=== PATIENT | female | born 1965 | race Caucasian/White ===

== ENCOUNTER 2024-02-20 11:52 | Outpatient (RCR) | payer MEDICARE, MEDICAID, SELFPAY ==
--- NOTE | 2024-03-01 22:16 | CTCFLWUP_ITS ---
Patient: ABRIL NEUMANN : 1965 Page 2 of 4 FOLLOW UP NOTE DATE OF SERVICE: 02/20/2024 NAME: ABRIL NEUMANN ACCOUNT: [id number] : 1965 AGE: 58 INTERVAL HISTORY: Patient here to follow-up pancytopenia. Patient feels fatigued and tired. Patient is being followed for pancytopenia. Patient has been taking Keppra. ONCOLOGY HISTORY: DIAGNOSIS: Age-related osteoporosis without current pathological fracture [ICD10] M81.0 TREATMENT HISTORY: Care?Plan Start?Date Cycle Day Intent Zoledronic?Acid?4?mg 02/20/2024 1 90 Palliative HISTORY OF PRESENT ILLNESS: Abril Thakur is a 58-year-old Tongan-speaking female. Patient is accompanied by kamryn jordan, patient lives in a skilled nursing due to epilepsy. Last seizure was yesterday. Patient taking Keppra. Patient reports history of skin cancer on left shoulder, about 2017 2018, reports it was re moved, does not have contact information of engineering librarian she saw. Patient was referred due to neutr openia and thrombocytopenia. 12/07/2021: WBC 3.7, ANC 2.2, hemoglobin 11.3, MCV 112, platelets 115,000 02/12/2023: WBC 1.9, ANC 0.7, hemoglobin 13.3, MCV 107, platelets 119,000, vitamin B12 is 194 09/25/2023: WBC 2.8, ANC 1.2, hemoglobin 13.6, MCV 99, platelets 144,000, creatinine 0.7, AST 14, ALT 11, T. bili 0.4 10/16/2023: WBC 2.2, ANC 0.7, hemoglobin 13.3, MCV 104, platelets 109,000 OTHER MEDICAL HISTORY/CONDITIONS: EPILEPSY ON MEDICATIONS , LAST SEIZURE 11/13/23 ANEMIA HX SKIN CANCER SHOULDER REPLACEMENT TRAIL 2021 SKIN CANCER SX FAMILY HISTORY: DENIES DENIES DENIES NO CHILDREN SKIN CANCER ON (R) NOSE, LEFT BACK UNABLE TO RECALL WHEN SOCIAL HISTORY: Social History Occupational History - UNEMPLOYED Education Level - Completed High School Exercise Regularly - Yes 2-3 times a week Marital Status - Single Cultural/Scientology Considerations - MUSLIM Tobacco Use - Yes Smoking Cessation Counseling - Smoking cessation education Tobacco Use Years - 40 Tobacco Use Note - 1 PACK CIGARETTES EVERY 3 DAYS ETOH Use Note - DENIES Drug Note - USED METH IN PAST Social History Note 2 - LIVES AT [place], [place] 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 calcium - 600 mg 1 Capsule Daily 2. levETIRAcetam - 750 mg 1 tab Twice a Day 3. lorazepam - 0.5 mg 2 tab In the evening 4. OXcarbazepine - 300 mg 2 tab Twice a Day 5. PARoxetine HCl - 20 mg 1 tab Daily 6. Vitamin D3 - 2,000 unit 1 Capsule Daily Medications Last Reconciled by Mary Guillory MA on 02/20/2024 ALLERGIES: Penicillin V; aspirin; Carbamazepine; Phenobarbital; divalproex REVIEW OF SYSTEMS: A complete 14-point review of systems was performed and is negative except as noted in interval histo ry. PHYSICAL EXAMINATION: VITAL SIGNS: PAIN: 0 - No pain ECOG Performance Status: 0 - Asymptomatic and fully active GENERAL APPEARANCE: Appears well, in no apparent distress, appropriately interactive. HEENT: Normocephalic, no temporal wasting, normal conjunctiva, no scleral icterus, normal hearing, li ps without lesions, neck normal range of motion. CARDIOVASCULAR: Not assessed. PULMONARY: Normal respiratory effort, no respiratory distress or use of accessory muscles, speaking i n full sentences, no tachypnea. EXTREMITIES: No pedal edema or cyanosis. SKIN: Normal skin appearance. NEUROLOGIC: Alert and oriented x4. PSHYCHIATRIC: Appropriate affect, mood normal, behavior normal, intact thought and speech. LABORATORY DATA: I have personally reviewed and interpreted each of the patient?s relevant lab tests, abnormal finding s are below: Date 01/10/24 ??WHITE?BLOOD?COUNT?(Thou/mm3) 2.6?L ??RED?BLOOD?COUNT?(Miln/mm3) 3.81?L ??HEMOGLOBIN?(gm/dl) 14.6 ??HEMATOCRIT?(%) 38.8 ??PLATELET?COUNT?(Thou/mm3) 127?L ??NEUTROPHILS?%,?AUTO?(%) 40 ??LYMPH?%,?AUTO?(%) 47 ??NEUTROPHILS,?AUTO?(Thou/mm3) 1.0?L ASSESSMENT/PLAN: ? Pancytopenia ? B 12 deficiency 02/12/2023, level of 194, no other B12 labs, not taking any supplementation. ? Smoker. ? History of epilepsy, lives in a skilled nursing due to epilepsy, last seizure was yesterday, follows up regularly with neurologist, Dr Wei. Patient taking levetiracetam. ORDERS: IR guided bone marrow biopsy to evaluate for MDS Obtain bone density results reports CBC CMP folate and B12 Keppra is known to cause bone marrow suppression in some patients I cannot hold the drug as patient has been on it for long-term Will get bone marrow biopsy to evaluate there is no underlying cancer If everything negative then we can ask neurologist to taper off Keppra and start some alternative kay page RETURN TO CLINIC: 6 to 8 weeks BILLING AND COMPLIANCE: I reviewed external records from providers outside my specialty as summarized above. I spent a total of 50 minutes on this patient?s care on the day of their visit excluding time spent related to any bi lled procedures. This time includes time spent with the patient as well as time spent documenting in the medical record, reviewing patients records and tests, obtaining history, placing orders, communi cating with other healthcare professionals, counseling the patient, family or caregiver, and/or care coordination for the diagnoses above. Electronically Signed by: Max Giordano MD T: 10:14 PM CC: PCP: No Primary/family, Physician Referring: No Primary/family, Physician This document was completed utilizing speech recognition software. Grammatical errors, random word in sertions, pronoun errors, and incomplete sentences are an occasional consequence of this system due t o software limitations, ambient noise, and hardware issues. Any formal questions or concerns about th e content, text or information contained within the body of this dictation should be directly address ed to the provider for clarification.
== END 2024-03-03 23:59 | disposition home or self-care (01) ==
LOC: SCTC 11:52
PROVIDERS: Visit Provider Internal Medicine Hematology & Oncology
DX: D61.818 Other pancytopenia (principal); M81.0 Age-related osteoporosis without current pathological fracture; G40.909 Epilepsy, unspecified, not intractable, without status epilepticus; E53.8 Deficiency of other specified B group vitamins; F17.210 Nicotine dependence, cigarettes, uncomplicated
CPT/HCPCS: 99212; G0463

== ENCOUNTER 2024-03-25 08:48 | Outpatient (RCR) | payer MEDICARE, MEDICAID, SELFPAY ==
[2024-03-25 09:57] LABS: Basophils % (Auto) 0 % (0-2.5); Eosinophils % (Auto) 0 % (0-10); Hematocrit 38.6 % (36.0-46.0); Hemoglobin 13.8 g/dL (12.0-16.0); Immature Granulocytes % (Auto) 0 % (0-0); Immature Granulocytes Auto 0.01 Thou/mm3 (0.00-0.00); Lymphocytes # (Auto) 1.1 Thou/mm3 (1.0-4.8); Lymphocytes % (Auto) 38 % (10-50); Mean Corpuscular HGB Conc 35.8 g/dl (31.0-37.0); Mean Corpuscular Hemoglobin 36.4 pg (25.0-35.0); Mean Corpuscular Volume 102 fL (80-100); Monocytes # (Auto) 0.4 Thou/mm3 (0.0-0.8); Monocytes % (Auto) 14 % (0-12); Neutrophils # (Auto) 1.3 Thou/mm3 (1.8-7.7); Neutrophils % (Auto) 47 % (37-80); Nucleated Red Blood Cell % 0 /100 WBC (0); Platelet Count 122 Thou/mm3 (140-440); Red Blood Count 3.79 Miln/mm3 (4.00-5.20)
[2024-03-25 10:00] LABS: Immature Reticulocyte Fraction 5.1 % (3.0-15.9); Reticulocyte % (Auto) 1.6 % (0.5-1.5); Reticulocyte Absolute Auto 57.5 Biln/L (25.0-75.0); Reticulocyte Hgb Content 34.9 pg (28.0-35.0)
[2024-03-25 10:15] LABS: White Blood Count 2.9 Thou/mm3 (3.6-11.0)
[2024-03-25 10:22] LABS: Alanine Aminotransferase 11 U/L (10-49); Albumin, Serum 4.4 gm/dL (3.5-5.0); Albumin/Globulin Ratio 1.8 (1.2-2.2); Alkaline Phosphatase 68 U/L (46-116); Anion Gap 5 (7-16); Aspartate Amino Transferase 17 U/L (0-34); BUN/Creatinine Ratio 24 Ratio (12-20); Bilirubin,Total 0.4 mg/dL (0.3-1.2); Blood Urea Nitrogen 17 mg/dL (9-23); Calcium 10.5 mg/dL (8.3-10.6); Calcium (Corrected) 10.5 mg/dL (8.5-10.1); Carbon Dioxide 31.5 mMol/L (20.0-31.0); Chloride 104 mMol/L (98-107); Creatinine (Component) 0.7 mg/dL (0.6-1.3); Ferritin 16 ng/mL (7.3-270.7); Folate 14.82 ng/mL (>5.38); Globulin 2.4 gm/dL (2.3-3.5); Glucose 83 mg/dL (74-106); Iron 121 mcg/dL (50-170); LDH (Lactate Dehydrogenase) 175 U/L (120-246); Osmolality,Calculated 279 (275-295); Percent Iron Saturation 42 % (20-55); Potassium 4.2 mMol/L (3.4-5.1); Sodium 140 mMol/L (136-145); Total Iron Binding Capacity 286 mcg/dL (250-425); Total Protein 6.8 gm/dL (5.7-8.2); Unsaturated Iron Binding 165 (225-295); Vitamin B12 243 pg/mL (211-911); eGFR > 60 See Note
[2024-03-31 07:02] LABS: Haptoglobin* 66 mg/dL (43-212)
== END 2024-04-03 23:59 | disposition home or self-care (01) ==
LOC: SCTC 08:48
PROVIDERS: PCP Family Medicine; Referring Provider Internal Medicine Hematology & Oncology; Visit Provider Internal Medicine Hematology & Oncology
DX: D61.818 Other pancytopenia (principal); E53.8 Deficiency of other specified B group vitamins; F17.210 Nicotine dependence, cigarettes, uncomplicated
CPT/HCPCS: 80053; 82607; 82728; 82746; 83010; 83540; 83550; 83615; 85025; 85046; 96365; J3489

== ENCOUNTER 2024-03-26 06:47 | Outpatient (CLI) | payer MEDICARE, MEDICAID, SELFPAY ==
[2024-03-26] VITALS (11 sets, daily range): BP systolic 141–177; BP diastolic 66–99; PULSE 56–66; RESP 12–22; TEMP 36.2–36.3; O2SAT 92–100; BMI 25.4
[2024-03-26 07:39] LABS: Basophils % (Auto) 0 % (0-2.5); Eosinophils % (Auto) 0 % (0-10); Hemoglobin 13.3 g/dL (12.0-16.0); Immature Granulocytes % (Auto) 0 % (0-0); Immature Granulocytes Auto 0.01 Thou/mm3 (0.00-0.00); Lymphocytes % (Auto) 32 % (10-50); Mean Corpuscular HGB Conc 36.9 g/dl (31.0-37.0); Mean Corpuscular Hemoglobin 38.2 pg (25.0-35.0); Mean Corpuscular Volume 103 fL (80-100); Monocytes # (Auto) 0.4 Thou/mm3 (0.0-0.8); Monocytes % (Auto) 12 % (0-12); Neutrophils # (Auto) 1.8 Thou/mm3 (1.8-7.7); Neutrophils % (Auto) 55 % (37-80); Nucleated Red Blood Cell % 0 /100 WBC (0); Platelet Count 114 Thou/mm3 (140-440); RDW Standard Deviation 48.7 fL (36.4-46.3); Red Blood Count 3.48 Miln/mm3 (4.00-5.20); White Blood Count 3.3 Thou/mm3 (3.6-11.0)
[2024-03-26 07:42] LABS: Blood Urea Nitrogen 15 mg/dL (9-23); Creatinine (Component) 0.7 mg/dL (0.6-1.3); eGFR > 60 See Note
[2024-03-26 07:46] LABS: Partial Thromboplastin Time 24.5 Seconds (22.0-36.0); Prothrombin Time 11.3 Seconds (9.0-12.2)
--- NOTE | 2024-03-26 08:30 | XR_ITS ---
Examination: CT-guided percutaneous bone marrow aspiration right posterior superior iliac crest CT-guided percutaneous bone biopsy deep right posterior superior iliac crest CT pelvis without intravenous contrast Date and time of procedure: March 26, 2024 0916 hours INDICATIONS: Neutropenia, unspecified Informed consent provided. A timeout was completed verifying correct patient, procedure, site and positioning. Technique: Axial 3 mm sections were obtained for localization of the right posterior superior iliac crest Appropriate area is marked. The patient's site was prepped and draped in sterile fashion Maximal sterile barrier technique utilized, including hand hygiene Local anesthesia was obtained with 1% lidocaine. Low dose protocols were performed. One or more of the following dose reduction techniques were used; automated exposure control, adjustment of the mA and/or KV according to patient size, use of iterative reconstruction technique. Utilizing CT fluoroscopic guidance 14-gauge bone biopsy needle placed in the right posterior superior iliac crest 5 cc marrow aspirate and 5 cm bone core obtained Patient appears in stable condition during this procedure. At completion of the procedure, the patient is in satisfactory condition. Estimated blood loss 3 cc Complete pathology report to follow. Impression: Successful CT-guided percutaneous bone marrow aspiration right posterior superior iliac crest Successful CT-guided percutaneous bone biopsy deep right posterior superior iliac crest
[2024-03-26] MEDS: SODIUM CHLORIDE 0.9% 250 ML 250 ML 20 ML IV (09:30)
[2024-03-26] MEDS: fentaNYL CIT INJ 50 mCg/ML AMP 2ML IVP (09:36)
[2024-03-26 10:07] LABS: Flow Cytometry* See Sep Rpt
== END 2024-03-26 11:10 | disposition home or self-care (01) ==
PROVIDERS: Radiology Diagnostic Radiology; PCP Family Medicine; Referring Provider Internal Medicine Hematology & Oncology; Visit Provider Internal Medicine Hematology & Oncology
DX: D75.89 Other specified diseases of blood and blood-forming organs (principal); D69.6 Thrombocytopenia, unspecified; D70.8 Other neutropenia; Z01.812 Encounter for preprocedural laboratory examination
CPT/HCPCS: 38221; 36415; 77012; 82565; 84520; 85025; 85610; 85730; J3010; J7050

== ENCOUNTER → 2024-05-01 | Outpatient (CLI) | payer MEDICARE, MEDICAID, SELFPAY ==
[2024-05-01 08:53] LABS: Misc Send Out* See Sep Rpt
[2024-05-01 09:29] LABS: Basophils % (Auto) 0 % (0-2.5); Eosinophils % (Auto) 0 % (0-10); Hemoglobin 14.1 g/dL (12.0-16.0); Immature Granulocytes % (Auto) 0 % (0-0); Immature Reticulocyte Fraction 7.6 % (3.0-15.9); Lymphocytes # (Auto) 1.2 Thou/mm3 (1.0-4.8); Lymphocytes % (Auto) 35 % (10-50); Mean Corpuscular HGB Conc 35.3 g/dl (31.0-37.0); Mean Corpuscular Hemoglobin 35.4 pg (25.0-35.0); Mean Corpuscular Volume 101 fL (80-100); Monocytes # (Auto) 0.5 Thou/mm3 (0.0-0.8); Monocytes % (Auto) 14 % (0-12); Neutrophils # (Auto) 1.7 Thou/mm3 (1.8-7.7); Neutrophils % (Auto) 51 % (37-80); Nucleated Red Blood Cell % 0 /100 WBC (0); Platelet Count 131 Thou/mm3 (140-440); RDW Standard Deviation 47.5 fL (36.4-46.3); Red Blood Count 3.98 Miln/mm3 (4.00-5.20); Reticulocyte % (Auto) 1.9 % (0.5-1.5); Reticulocyte Absolute Auto 74.4 Biln/L (25.0-75.0); Reticulocyte Hgb Content 37.3 pg (28.0-35.0); White Blood Count 3.4 Thou/mm3 (3.6-11.0)
[2024-05-01 09:43] LABS: Alanine Aminotransferase 12 U/L (10-49); Albumin, Serum 4.2 gm/dL (3.5-5.0); Albumin/Globulin Ratio 2.1 (1.2-2.2); Alkaline Phosphatase 65 U/L (46-116); Anion Gap 6 (7-16); Aspartate Amino Transferase 13 U/L (0-34); BUN/Creatinine Ratio 40 Ratio (12-20); Bilirubin,Total 0.3 mg/dL (0.3-1.2); Blood Urea Nitrogen 24 mg/dL (9-23); Calcium 10.3 mg/dL (8.3-10.6); Calcium (Corrected) 10.3 mg/dL (8.5-10.1); Carbon Dioxide 30.3 mMol/L (20.0-31.0); Chloride 109 mMol/L (98-107); Creatinine (Component) 0.6 mg/dL (0.6-1.3); Folate 11.78 ng/mL (>5.38); Glucose 80 mg/dL (74-106); LDH (Lactate Dehydrogenase) 158 U/L (120-246); Osmolality,Calculated 291 (275-295); Potassium 4.4 mMol/L (3.4-5.1); Sodium 145 mMol/L (136-145); Total Protein 6.2 gm/dL (5.7-8.2); Vitamin B12 211 pg/mL (211-911); eGFR > 60 See Note
[2024-05-11 07:03] LABS: Haptoglobin* 54 mg/dL (43-212)
== END | disposition home or self-care (01) ==
LOC: COPL 08:33
PROVIDERS: PCP Family Medicine; Referring Provider Family Medicine; Visit Provider Internal Medicine Hematology & Oncology
DX: D70.9 Neutropenia, unspecified (principal); D69.6 Thrombocytopenia, unspecified; M81.0 Age-related osteoporosis without current pathological fracture; G40.909 Epilepsy, unspecified, not intractable, without status epilepticus
CPT/HCPCS: 36415; 80053; 82607; 82746; 83010; 83615; 85025; 85046

== ENCOUNTER 2024-05-12 15:28 | Outpatient (RCR) | payer MEDICARE, MEDICAID, SELFPAY ==
--- NOTE | 2024-05-06 14:41 | CTCFLWUP_ITS ---
Patient: ABRIL NEUMANN : 1965 Page 2 of 2 FOLLOW UP NOTE DATE OF SERVICE: 05/06/2024 NAME: ABRIL NEUMANN ACCOUNT: [id number] : 1965 AGE: 58 INTERVAL HISTORY: Patient here to follow-up pancytopenia. Patient feels fatigued and tired. Patient is being followed for pancytopenia. Patient has been taking Keppra. Patient had a bone marrow biopsy and here to follow-up on the results. ONCOLOGY HISTORY:?[facility] Hx? DIAGNOSIS: Age-related osteoporosis without current pathological fracture [ICD10] M81.0 TREATMENT HISTORY: Care?Plan Start?Date Cycle Day Intent Zoledronic?Acid?4?mg 03/25/2024 1 90 Palliative HISTORY OF PRESENT ILLNESS: Abril Thakur is a 58-year-old Kyrgyz-speaking female. Patient is accompanied by caregiver, patient lives in a mcc due to epilepsy. Last seizure was yesterday. Patient taking Keppra. 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 Patient was referred due to neutropenia and thrombocytopenia. 12/07/2021: WBC 3.7, ANC 2.2, hemoglobin 11.3, MCV 112, platelets 115,000 02/12/2023: WBC 1.9, ANC 0.7, hemoglobin 13.3, MCV 107, platelets 119,000, vitamin B12 is 194 09/25/2023: WBC 2.8, ANC 1.2, hemoglobin 13.6, MCV 99, platelets 144,000, creatinine 0.7, AST 14, ALT 11, T. bili 0.4 10/16/2023: WBC 2.2, ANC 0.7, hemoglobin 13.3, MCV 104, platelets 109,000 OTHER MEDICAL HISTORY/CONDITIONS: EPILEPSY ON MEDICATIONS , LAST SEIZURE 11/13/23 ANEMIA HX SKIN CANCER SHOULDER REPLACEMENT [place] 2021 SKIN CANCER SX FAMILY HISTORY: DENIES DENIES DENIES NO CHILDREN SKIN CANCER ON (R) NOSE, LEFT BACK UNABLE TO RECALL WHEN SOCIAL HISTORY: Social History Occupational History - UNEMPLOYED Education Level - Completed High School Exercise Regularly - Yes 2-3 times a week Marital Status - Single Cultural/Baptist Considerations - FAITH Tobacco Use - Yes Smoking Cessation Counseling - Smoking cessation education Tobacco Use Years - 40 Tobacco Use Note - 1 PACK CIGARETTES EVERY 3 DAYS ETOH Use Note - DENIES Drug Note - USED METH IN PAST Social History Note 2 - 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 calcium - 600 mg 1 Capsule Daily 2. levETIRAcetam - 750 mg 1 tab Twice a Day 3. lorazepam - 0.5 mg 2 tab In the evening 4. OXcarbazepine - 300 mg 2 tab Twice a Day 5. PARoxetine HCl - 20 mg 1 tab Daily 6. Vitamin D3 - 2,000 unit 1 Capsule Daily?Palabra Meds? Medications Last Reconciled by Pati Paniagua MD on 05/06/2024 ALLERGIES: Penicillin V; aspirin; Carbamazepine; Phenobarbital; divalproex REVIEW OF SYSTEMS: A complete 14-point review of systems was performed and is negative except as noted in interval history. PHYSICAL EXAMINATION:?[facility] PE? VITAL SIGNS: PAIN: 0 - No pain GENERAL APPEARANCE: Appears well, in no apparent distress, appropriately interactive. HEENT: Normocephalic, no temporal wasting, normal conjunctiva, no scleral icterus, normal hearing, lips without lesions, neck normal range of motion. CARDIOVASCULAR: Not assessed. PULMONARY: Normal respiratory effort, no respiratory distress or use of accessory muscles, speaking in full sentences, no tachypnea. EXTREMITIES: No pedal edema or cyanosis. SKIN: Normal skin appearance. NEUROLOGIC: Alert and oriented x4. PSHYCHIATRIC: Patient has flat mood LABORATORY DATA: I have personally reviewed and interpreted each of the patient?s relevant lab tests, abnormal findings are below: Date 05/01/24 ??LDH,?TOTAL?(Unit/L) 158 ASSESSMENT/PLAN:?[facility] Assessment/Plan? ? Pancytopenia ? B 12 deficiency 02/12/2023, level of 194, repeat B12 in 04/23/2024 is 217 ? smoker. ? History of epilepsy, lives in a mcc due to epilepsy, last seizure was yesterday, follows up regularly with neurologist, Dr Wei. Patient taking levetiracetam. Patient's pancytopenia can be from severe B12 deficiency and seizure medication Will start B12 thousand for 4 doses subcutaneously followed by monthly Multivitamin ordered containing calcium and vitamin D Check CBC every month to see response If after 3 months patient's pancytopenia do not improve, neurologist advised to change treatment RETURN TO CLINIC: I will see her back in the clinic in 2 months. BILLING AND COMPLIANCE: I reviewed external records from providers outside my specialty as summarized above. I spent a total of 50 minutes on this patient?s care on the day of their visit excluding time spent related to any billed procedures. This time includes time spent with the patient as well as time spent documenting in the medical record, reviewing patients records and tests, obtaining history, placing orders, communicating with other healthcare professionals, counseling the patient, family or caregiver, and/or care coordination for the diagnoses above. Electronically Signed by: Max Giordano MD T: 2:37 PM CC: PCP: Pavel Weeks Referring: Pavel Weeks This document was completed utilizing speech recognition software. Grammatical errors, random word insertions, pronoun errors, and incomplete sentences are an occasional consequence of this system due to software limitations, ambient noise, and hardware issues. Any formal questions or concerns about the content, text or information contained within the body of this dictation should be directly addressed to the provider for clarification.
== END 2024-06-01 23:59 | disposition home or self-care (01) ==
LOC: SCTC 15:28
PROVIDERS: PCP Family Medicine; Referring Provider Family Medicine; Visit Provider Internal Medicine Hematology & Oncology
DX: D61.818 Other pancytopenia (principal); E53.8 Deficiency of other specified B group vitamins; F17.210 Nicotine dependence, cigarettes, uncomplicated; G40.909 Epilepsy, unspecified, not intractable, without status epilepticus; Z79.899 Other long term (current) drug therapy
CPT/HCPCS: 96372; 99212; J3420; G0463

== ENCOUNTER → 2024-07-03 | Outpatient (CLI) | payer MEDICARE, MEDICAID, SELFPAY ==
[2024-07-02 16:40] LABS: Basophils % (Auto) 0 % (0-2.5); Eosinophils % (Auto) 0 % (0-10); Hematocrit 34.1 % (36.0-46.0); Hemoglobin 12.8 g/dL (12.0-16.0); Immature Granulocytes % (Auto) 0 % (0-0); Lymphocytes # (Auto) 1.1 Thou/mm3 (1.0-4.8); Lymphocytes % (Auto) 43 % (10-50); Mean Corpuscular HGB Conc 37.5 g/dl (31.0-37.0); Mean Corpuscular Hemoglobin 37.9 pg (25.0-35.0); Mean Corpuscular Volume 101 fL (80-100); Monocytes # (Auto) 0.4 Thou/mm3 (0.0-0.8); Monocytes % (Auto) 17 % (0-12); Neutrophils # (Auto) 1.1 Thou/mm3 (1.8-7.7); Neutrophils % (Auto) 40 % (37-80); Nucleated Red Blood Cell % 0 /100 WBC (0); Platelet Count 122 Thou/mm3 (140-440); RDW Standard Deviation 46.5 fL (36.4-46.3); Red Blood Count 3.38 Miln/mm3 (4.00-5.20)
[2024-07-02 17:03] LABS: Alanine Aminotransferase 9 U/L (10-49); Albumin, Serum 3.9 gm/dL (3.5-5.0); Albumin/Globulin Ratio 1.7 (1.2-2.2); Alkaline Phosphatase 68 U/L (46-116); Anion Gap 8 (7-16); Aspartate Amino Transferase 15 U/L (0-34); BUN/Creatinine Ratio 28 Ratio (12-20); Bilirubin,Total 0.3 mg/dL (0.3-1.2); Blood Urea Nitrogen 22 mg/dL (9-23); Calcium 9.7 mg/dL (8.3-10.6); Calcium (Corrected) 9.8 mg/dL (8.5-10.1); Carbon Dioxide 30.2 mMol/L (20.0-31.0); Chloride 105 mMol/L (98-107); Creatinine (Component) 0.8 mg/dL (0.6-1.3); Globulin 2.3 gm/dL (2.3-3.5); Glucose 101 mg/dL (74-106); Osmolality,Calculated 288 (275-295); Sodium 143 mMol/L (136-145); Total Protein 6.2 gm/dL (5.7-8.2); eGFR > 60 See Note
[2024-07-02 17:16] LABS: White Blood Count 2.7 Thou/mm3 (3.6-11.0)
--- NOTE | 2024-07-03 12:30 | XR_ITS ---
Examination: CT chest, without intravenous contrast. Sagittal and coronal 2-D reconstructions. Exam date and time: July 03, 2024 1301 hours Comparison December 10, 2023 INDICATIONS: Neutropenia thrombocytopenia, 6 mm soft pulmonary nodule left upper lobe on CT chest April 2023 with left renal calculi and 6 mm left common iliac lymph node CTDI:vol (mGy) 11.6 DLP: (mGycm) 349 Technique: Multiple 3.0 mm axial sections of the chest to been obtained. Bone and lung density settings are obtained. Sagittal and coronal 2-D reconstructions have been obtained. Low dose protocols were performed. One or more of the following dose reduction techniques were used; automated exposure control, adjustment of the mA and/or KV according to patient size, use of iterative reconstruction technique. Findings: No thoracic aortic aneurysm dilatation Pulmonary artery segments are not enlarged The breast architecture is heterogeneously dense and nodular Trace pericardial thickening No paratracheal tracheobronchial or bronchopulmonary adenopathy The remaining 6 mm soft pulmonary nodule left upper lobe No new pulmonary nodules No pneumonia or pulmonary edema No visualized liver or splenic lesion No gallstones No pancreatic mass 8mm left renal calculus Severe osteopenia with chronic osteoporotic compressions T12 T8, T7 T2, T1, C7 IMPRESSION: Stable 6 mm soft pulmonary nodule left upper lobe, no new pulmonary nodules
== END | disposition home or self-care (01) ==
LOC: SCTO 11:47
PROVIDERS: PCP Family Medicine; Referring Provider Nurse Practitioner Family; Visit Provider Radiology Diagnostic Radiology
DX: R91.1 Solitary pulmonary nodule (principal); D70.9 Neutropenia, unspecified; D69.6 Thrombocytopenia, unspecified
CPT/HCPCS: 36415; 71250; 80053; 85025

== ENCOUNTER 2024-07-09 14:33 | Outpatient (RCR) | payer MEDICARE, MEDICAID, SELFPAY ==
--- NOTE | 2024-07-12 22:08 | CTCFLWUP_ITS ---
Patient: ABRIL ELDER : 1965 Page 4 of 7 FOLLOW UP NOTE DATE OF SERVICE: 07/09/2024 NAME: ABRIL ELDER ACCOUNT: [id number] : 1965 AGE: 58 INTERVAL HISTORY: Subjective: Chief Complaint Follow-up for pancytopenia and B12 deficiency History of Present Illness Abril Elder, a patient with a history of epilepsy living in a care home, presents for follow-up of pancytopenia and B12 deficiency. She was initially seen in April 2024 with a B12 level of 194 and was started on B12 supplementation with a plan to follow up in 3 weeks. During today's telephone visit, Abril reports feeling a little better since starting the B12 injections. She has been receiving B12 injections every 4 weeks, with the most recent injection on July 06, 2024. Abril's adherence to the prescribed treatment regimen appears to be good, as she has been consistently receiving the injections as scheduled. No specific symptoms or complaints were reported by Abril during this follow-up visit. The impact of her condition on her daily functioning was not explicitly discussed. Medical History - Pancytopenia - B12 deficiency - Epilepsy Medications and Supplements - Vitamin B12 injections - Administered every 4 weeks - Last injection on July 06, 2024 - Patient reports feeling a little better since starting Social History - Living Situation: Lives in a care home Review of Systems General: Positive for feeling a little better. Objective: Laboratory, Imaging, and Diagnostic Test Results - Date: July 09, 2024 - CBC: Hemoglobin 12.8 g/dL, WBC 2.7, Neutrophils 1.1, Platelets 122 - Previous results: - B12 level: 194 (April 2024) ONCOLOGY HISTORY: DIAGNOSIS: Age-related osteoporosis without current pathological fracture [ICD10] M81.0 TREATMENT HISTORY: Care?Plan Start?Date Cycle Day Intent Zoledronic?Acid?4?mg 03/25/2024 1 90 Palliative HISTORY OF PRESENT ILLNESS: Abril Thakur is a 58-year-old Greenlandic-speaking female. Patient is accompanied by caregiver, patient lives in a care home due to epilepsy. Last seizure was yesterday. Patient taking Keppra. 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 Patient was referred due to neutropenia and thrombocytopenia. 12/07/2021: WBC 3.7, ANC 2.2, hemoglobin 11.3, MCV 112, platelets 115,000 02/12/2023: WBC 1.9, ANC 0.7, hemoglobin 13.3, MCV 107, platelets 119,000, vitamin B12 is 194 09/25/2023: WBC 2.8, ANC 1.2, hemoglobin 13.6, MCV 99, platelets 144,000, creatinine 0.7, AST 14, ALT 11, T. bili 0.4 10/16/2023: WBC 2.2, ANC 0.7, hemoglobin 13.3, MCV 104, platelets 109,000 OTHER MEDICAL HISTORY/CONDITIONS: EPILEPSY ON MEDICATIONS , LAST SEIZURE 11/13/23 ANEMIA HX SKIN CANCER SHOULDER REPLACEMENT [place] 2021 SKIN CANCER SX FAMILY HISTORY: DENIES DENIES DENIES NO CHILDREN SKIN CANCER ON (R) NOSE, LEFT BACK UNABLE TO RECALL WHEN SOCIAL HISTORY: Social History Occupational History - UNEMPLOYED Education Level - Completed High School Exercise Regularly - Yes 2-3 times a week Marital Status - Single Cultural/Mormon Considerations - YAZIDI Tobacco Use - Yes Smoking Cessation Counseling - Smoking cessation education Tobacco Use Years - 40 Tobacco Use Note - 1 PACK CIGARETTES EVERY 3 DAYS ETOH Use Note - DENIES Drug Note - USED METH IN PAST Social History Note 2 - LIVES AT [place], [place] 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 calcium - 600 mg 1 Capsule Daily 2. levETIRAcetam - 750 mg 1 tab Twice a Day 3. lorazepam - 0.5 mg 2 tab In the evening 4. OXcarbazepine - 300 mg 2 tab Twice a Day 5. PARoxetine HCl - 20 mg 1 tab Daily 6. Vitamin D3 - 2,000 unit 1 Capsule Daily Medications Last Reconciled by Pati Paniagua RN on 05/06/2024 (Reconcile on Approval: ?) ALLERGIES: Penicillin V; aspirin; Carbamazepine; Phenobarbital; divalproex REVIEW OF SYSTEMS: A complete 14-point review of systems was performed and is negative except as noted in interval history. PHYSICAL EXAMINATION: VITAL SIGNS: PAIN: 0 - No pain ECOG Performance Status: 0 - Asymptomatic and fully active GENERAL APPEARANCE: Appears well, in no apparent distress, appropriately interactive. HEENT: Normocephalic, no temporal wasting, normal conjunctiva, no scleral icterus, normal hearing, lips without lesions, neck normal range of motion. CARDIOVASCULAR: Not assessed. PULMONARY: Normal respiratory effort, no respiratory distress or use of accessory muscles, speaking in full sentences, no tachypnea. EXTREMITIES: No pedal edema or cyanosis. SKIN: Normal skin appearance. NEUROLOGIC: Alert and oriented x4. PSHYCHIATRIC: Patient has flat mood LABORATORY DATA: I have personally reviewed and interpreted each of the patient?s relevant lab tests, abnormal findings are below: Date 05/01/24 07/02/24 ??WHITE?BLOOD?COUNT?(Thou/mm3) ? 2.7?L ??RED?BLOOD?COUNT?(Miln/mm3) ? 3.38?L ??HEMOGLOBIN?(gm/dl) ? 12.8 ??HEMATOCRIT?(%) ? 34.1?L ??PLATELET?COUNT?(Thou/mm3) ? 122?L ??NEUTROPHILS?%,?AUTO?(%) ? 40 ??LYMPH?%,?AUTO?(%) ? 43 ??NEUTROPHILS,?AUTO?(Thou/mm3) ? 1.1?L ??GLUCOSE,RANDOM?(mg/dL) 80 101 ??BLOOD?UREA?NITROGEN?(mg/dL) 24?H 22 ??CREATININE?(mg/dL) 0.60 0.80 ??SODIUM?(mmol/L) 145 143 ??POTASSIUM?(mmol/L) 4.4 4.0 ??CHLORIDE?(mmol/L) 109?H 105 ??CrCl?(CandG)?(ml/min) 104.21 78.16 ??AST/SGOT?(Unit/L) 13 15 ??ALT/SGPT?(Unit/L) 12 9?L ??ALKALINE?PHOSPHATASE?(Unit/L) 65 68 ??BILIRUBIN,?TOTAL?(mg/dL) 0.3 0.3 ??PROTEIN?TOTAL?(gm/dl) 6.2 6.2 ??ALBUMIN,?SERUM?(gm/dl) 4.2 3.9 ??GLOBULIN?(gm/dl) 2.0?L 2.3 ??ALBUMIN/GLOBULIN?RATIO 2.1 1.7 ??CALCIUM,?SERUM?(mg/dL) 10.3 9.7 ??CALCIUM?SERUM?(CORRECTED)?(mg/dL) 10.3?H 9.8 ??LDH,?TOTAL?(Unit/L) 158 ? ASSESSMENT/PLAN: ? Pancytopenia ? B 12 deficiency 02/12/2023, level of 194, repeat B12 in 04/23/2024 is 217 ? smoker. ? Assessment and Plan: ? ? Abril Elder, a patient with a history of epilepsy living in a care home, presents for follow-up of pancytopenia and B12 deficiency, initially diagnosed in April 2024 with a B12 level of 194. ? ? Pancytopenia and B12 deficiency ? Assessment: Patient was diagnosed with pancytopenia and B12 deficiency in April 2024, with an initial B12 level of 194. She was started on B12 injections at the last visit, with a plan to follow up in 3 weeks. Current lab results show improvement in hemoglobin (12.8) but persistent leukopenia (WBC 2.7, neutrophils 1.1) and mild thrombocytopenia (platelets 122). The patient reports feeling slightly better since starting B12 injections, which she has been receiving every 4 weeks, with the last one on July 06, 2024. ? Plan: ? - Continue B12 injections every 4 weeks ? - Schedule blood work in 2 months before the next appointment ? - Follow-up appointment after blood work results are available ORDERS: Order # Description [id number] Follow Up 2 Months + Comprehensive Metabolic Panel - 12 + CBC with Auto Diff [id number] Vitamin B-12 [id number] Basic Metabolic Panel [id number] Lab Appointment [id number] Infusion 1 Hour [id number] Basic Metabolic Panel [id number] Lab Appointment [id number] Infusion 1 Hour [id number] Basic Metabolic Panel [id number] Lab Appointment [id number] Infusion 1 Hour [id number] Basic Metabolic Panel [id number] Lab Appointment [id number] Infusion 1 Hour [id number] Basic Metabolic Panel [id number] Lab Appointment [id number] Infusion 1 Hour [id number] Basic Metabolic Panel [id number] Lab Appointment [id number] Infusion 1 Hour [id number] Basic Metabolic Panel [id number] Lab Appointment [id number] Infusion 1 Hour [id number] Basic Metabolic Panel [id number] Lab Appointment [id number] Infusion 1 Hour [id number] Basic Metabolic Panel [id number] Lab Appointment [id number] Infusion 1 Hour [id number] Basic Metabolic Panel [id number] Lab Appointment [id number] Infusion 1 Hour [id number] Basic Metabolic Panel [id number] Lab Appointment RETURN TO CLINIC: BILLING AND COMPLIANCE: I reviewed external records from providers outside my specialty as summarized above. I spent a total of 50 minutes on this patient?s care on the day of their visit excluding time spent related to any billed procedures. This time includes time spent with the patient as well as time spent documenting in the medical record, reviewing patients records and tests, obtaining history, placing orders, communicating with other healthcare professionals, counseling the patient, family or caregiver, and/or care coordination for the diagnoses above. Electronically Signed by: {Object.Sanct_ID*PnP.NameFL@M}, {Object.Sanct_ID*PnP.Suffix@U} D: {Object.Sanct_Date} T: {Object.Sanct_Time} CC: PCP: Max Giordano Referring: Max Giordano This document was completed utilizing speech recognition software. Grammatical errors, random word insertions, pronoun errors, and incomplete sentences are an occasional consequence of this system due to software limitations, ambient noise, and hardware issues. Any formal questions or concerns about the content, text or information contained within the body of this dictation should be directly addressed to the provider for clarification.
== END 2024-08-01 23:59 | disposition home or self-care (01) ==
LOC: SCTC 14:33
PROVIDERS: PCP Family Medicine; Referring Provider Internal Medicine Hematology & Oncology; Visit Provider Internal Medicine Hematology & Oncology
DX: E53.8 Deficiency of other specified B group vitamins (principal); D61.818 Other pancytopenia; F17.200 Nicotine dependence, unspecified, uncomplicated
CPT/HCPCS: 96365; 96372; 99212; J3420; J3489; J7040; G0463

== ENCOUNTER → 2024-08-11 | Outpatient (CLI) | payer MEDICARE, MEDICAID, SELFPAY ==
[2024-08-11 10:40] LABS: Misc Send Out* See Sep Rpt
[2024-08-11 11:32] LABS: Basophils % (Auto) 0 % (0-2.5); Eosinophils % (Auto) 0 % (0-10); Hematocrit 36.4 % (36.0-46.0); Hemoglobin 14.1 g/dL (12.0-16.0); Immature Granulocytes % (Auto) 0 % (0-0); Lymphocytes # (Auto) 1.6 Thou/mm3 (1.0-4.8); Lymphocytes % (Auto) 47 % (10-50); Mean Corpuscular HGB Conc 38.7 g/dl (31.0-37.0); Mean Corpuscular Hemoglobin 41.2 pg (25.0-35.0); Mean Corpuscular Volume 106 fL (80-100); Monocytes # (Auto) 0.4 Thou/mm3 (0.0-0.8); Monocytes % (Auto) 12 % (0-12); Neutrophils # (Auto) 1.4 Thou/mm3 (1.8-7.7); Neutrophils % (Auto) 41 % (37-80); Nucleated Red Blood Cell % 0 /100 WBC (0); Platelet Count 137 Thou/mm3 (140-440); RDW Standard Deviation 47.9 fL (36.4-46.3); Red Blood Count 3.42 Miln/mm3 (4.00-5.20); White Blood Count 3.4 Thou/mm3 (3.6-11.0)
[2024-08-17 07:07] LABS: Levetiracetam (Keppra)* 30.4 mcg/mL (6.0-46.0)
== END | disposition home or self-care (01) ==
LOC: COPL 10:24
PROVIDERS: PCP Family Medicine; Referring Provider Psychiatry & Neurology Neurology; Visit Provider Psychiatry & Neurology Neurology
DX: G40.909 Epilepsy, unspecified, not intractable, without status epilepticus (principal); D50.0 Iron deficiency anemia secondary to blood loss (chronic)
CPT/HCPCS: 36415; 80177; 85025

== ENCOUNTER 2024-08-12 07:55 | Emergency (ER) | payer MEDICARE, MEDICAID, SELFPAY ==
[2024-08-12 08:09] VITALS: BP 170/97; PULSE 76; RESP 18; TEMP 36.3; O2SAT 95; BMI 25.9
--- NOTE | 2024-08-12 08:19 | EKG_ITS ---
[facility] Test Date: 2024-08-12 Pat Name: EMILY NEUMANN Department: Room: - Gender: Female Director Of Creative Services: : 1965 Requested By: Sunny Holly Order Number: [id number] Reading MD: Sunny Holly Measurements Intervals Mcleod Rate: 58 P: 91 VT: 214 QRS: 53 QRSD: 72 T: 55 QT: 386 QTc: 380 Interpretive Statements SINUS BRADYCARDIA WITH FIRST DEGREE AV BLOCK SEPTAL MYOCARDIAL INFARCTION , PROBABLY OLD [40+ ms Q WAVE IN V1/V2] Compared to ECG 01/08/2019 10:16:02 First degree AV block now present Sinus rhythm no longer present Myocardial infarct finding still present /store/S0/[id number].pdf
--- NOTE | 2024-08-12 08:19 | XR_ITS ---
Examination: CT brain head without contrast. 2-D sagittal coronal reconstructions Date and time of exam:August 12, 2024 0831 hrs. Comparison 2024 Indication: Seizures today CTDI: vol (mGy):44.3 DLP: (mGycm):862 Technique: Multiple CT axial sections of the brain have been obtained, 5 mm slice thickness. Contrast has not been administered. 2-D sagittal, coronal reconstructions have been obtained Low dose protocols were performed. One or more of the following dose reduction techniques were used; automated exposure control, adjustment of the mA and/or KV according to patient size, use of iterative reconstruction technique. Findings: No significant ventricular enlargement. Right cerebral atrophy again noted Intra-axial or extra-axial hemorrhage density is not seen. No mass effect or midline shift Basal cisterns are not remarkable. Fourth ventricle is midline. Cranial vault intact. Impression: Negative for acute hemorrhage, mass effect or midline shift
--- NOTE | 2024-08-12 08:20 | PD.EDRME ---
Rapid Medical Screening Exam RME Arrival date/time: 08/12/24 07:55 58-year-old female with a history of seizures presents to the emergency room with a chief complaint of weakness, waking up drenched in sweat, and having 7 seizures in the last week. Patient lives in a skilled nursing and was brought by her caregiver due to her increased amount of seizures. I have greeted and performed a focused initial assessment of this patient. A comprehensive ED assessment and evaluation of the patient, analysis of all test results, and completion of the medical decision making process will be conducted by additional ED providers. Chief Complaint: Seizure Time Seen by Provider: 08/12/24 08:09 Vital signs: Vital Signs Temperature 97.4 F 08/12/24 08:09 Pulse Rate 76 08/12/24 08:09 Respiratory Rate 18 08/12/24 08:09 Blood Pressure 170/97 H 08/12/24 08:09 Pulse Oximetry (%) 95 08/12/24 08:09 Oxygen Delivery Method Room Air 08/12/24 08:09 Vital signs reviewed by provider: Yes
[2024-08-12 09:04] LABS: Basophils % (Auto) 0 % (0-2.5); Eosinophils % (Auto) 0 % (0-10); Hematocrit 37.8 % (36.0-46.0); Hemoglobin 14.9 g/dL (12.0-16.0); Immature Granulocytes % (Auto) 0 % (0-0); Lymphocytes # (Auto) 1.3 Thou/mm3 (1.0-4.8); Lymphocytes % (Auto) 40 % (10-50); Mean Corpuscular HGB Conc 39.4 g/dl (31.0-37.0); Mean Corpuscular Hemoglobin 40.1 pg (25.0-35.0); Mean Corpuscular Volume 102 fL (80-100); Monocytes # (Auto) 0.4 Thou/mm3 (0.0-0.8); Monocytes % (Auto) 13 % (0-12); Neutrophils # (Auto) 1.5 Thou/mm3 (1.8-7.7); Neutrophils % (Auto) 47 % (37-80); Nucleated Red Blood Cell % 0 /100 WBC (0); Platelet Count 135 Thou/mm3 (140-440); Red Blood Count 3.72 Miln/mm3 (4.00-5.20); White Blood Count 3.2 Thou/mm3 (3.6-11.0)
[2024-08-12 09:16] VITALS: BP 172/88; PULSE 57; RESP 18; TEMP 36.7; O2SAT 97
[2024-08-12 09:21] LABS: Alanine Aminotransferase 9 U/L (10-49); Albumin, Serum 4.6 gm/dL (3.5-5.0); Albumin/Globulin Ratio 2.4 (1.2-2.2); Alkaline Phosphatase 65 U/L (46-116); Anion Gap 7 (7-16); BUN/Creatinine Ratio 23 Ratio (12-20); Bilirubin,Total 0.5 mg/dL (0.3-1.2); Blood Urea Nitrogen 14 mg/dL (9-23); Calcium 10.3 mg/dL (8.3-10.6); Calcium (Corrected) 10.3 mg/dL (8.5-10.1); Carbon Dioxide 29.8 mMol/L (20.0-31.0); Chloride 104 mMol/L (98-107); Creatinine (Component) 0.6 mg/dL (0.6-1.3); Globulin 1.9 gm/dL (2.3-3.5); Glucose 92 mg/dL (74-106); Osmolality,Calculated 281 (275-295); Potassium 3.8 mMol/L (3.4-5.1); Sodium 141 mMol/L (136-145); Total Protein 6.5 gm/dL (5.7-8.2); Troponin I < 0.020 ng/mL (0.0-0.045); eGFR > 60 See Note
[2024-08-12 09:31] LABS: B-Type Natriuretic Peptide 71 pg/mL (0-100)
[2024-08-12 09:37] LABS: Collection Type, Urine Clean Catch
--- NOTE | 2024-08-12 09:40 | PD.EDADULT ---
ED General RME/HPI General Chief complaint: Seizure Stated complaint: COLD SWEATS/CLAMMY, 7 SEIZURES PAST WEEK Time Seen by Provider: 08/12/24 08:09 Arrival date/time: 08/12/24 07:55 RME / HPI RME / HPI narrative: 08/12/24 07:55 58-year-old female with a history of seizures presents to the emergency room with a chief complaint of weakness, waking up drenched in sweat, and having 7 seizures in the last week. [facility] a [facility] and was brought by her caregiver due to her increased amount of seizures. I have greeted and performed a focused initial assessment of this patient. A comprehensive ED assessment and evaluation of the patient, analysis of all test results, and completion of the medical decision making process will be conducted by additional ED providers. DR. RIZO MAIN ED EVALUATION: 58 year old female presents to the Emergency Department brought in by caregiver from shelter with complaint of generalized weakness and waking up with cold sweats and chills. Per caregiver, the patient had x7 seizures the last week, last one was Saturday. No seizures in the last 2 days but they were concerned for her cold sweats at 5 AM. Unknown if she had a fever this morning. Per mineralogy teacher, the patient is usually tired but today a little more. Patient has a chronic cough from smoking, but no more than the usual. PMHx: Epilepsy on 750 mg Keppra followed by Dr. Wei. 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 Still smokes cigarettes. Related Data Home Medications ?Medication ?Instructions ?Recorded ?Confirmed alendronate 70 mg tablet 70 mg PO QWEEK 01/14/24 03/26/24 cholecalciferol (vitamin D3) 50 50 mcg PO QDAY 01/14/24 03/26/24 mcg (2,000 unit) capsule (Vitamin D3) levetiracetam 750 mg tablet 750 mg PO BID 01/14/24 03/26/24 lorazepam 0.5 mg tablet 0.5 mg PO HS 01/14/24 03/26/24 oxcarbazepine 300 mg tablet 300 mg PO BID 01/14/24 03/26/24 paroxetine HCl 20 mg tablet 20 mg PO HS 01/14/24 03/26/24 calcium carbonate 600 mg DAILY 03/26/24 03/26/24 Allergies Allergy/AdvReac Type Severity Reaction Status Date / Time aspirin Allergy Severe HIVES Verified 08/12/24 07:59 carbamazepine (From Tegretol) Allergy Severe Rash Verified 08/12/24 07:59 codeine Allergy Severe Rash Verified 08/12/24 07:59 divalproex sodium Allergy Severe COMA Verified 08/12/24 07:59 Penicillins Allergy Severe RASH Verified 08/12/24 07:59 phenobarbital Allergy Severe RASH Verified 08/12/24 07:59 Review of Systems Review of Systems Systems Reviewed: All systems reviewed, normal except as documented Narrative Review of Systems: Constitutional: POSITIVES: generalized weakness, cold sweats, and chills DENIES: fevers; Eyes: DENIES: loss of vision; Head/Ear/Nose: DENIES: loss of hearing. Throat: DENIES: dysphagia. Cardiovascular: DENIES: chest pain, dyspnea, or syncope. Respiratory: DENIES: shortness of breath; Gastrointestinal: DENIES: rectal bleeding or melena. Genitourinary: DENIES: dysuria (painful or difficult urination); Musculoskeletal: DENIES: arthralgia (pain in a joint); Skin: DENIES: rash; Neurological: DENIES: loss of function or movement; Psychiatric: DENIES: recent major life stressor, emotional problem, illicit drug use or abuse; Endocrinology: DENIES: weight change,; Hematologic/Lymphatic: DENIES: abnormal bruising. Allergic/Immunologic: DENIES: urticaria (hives). Past Medical History Past Medical History NEUROLOGIC: Positive Neurological Disorders, Seizures and Epilepsy OTHER HISTORY: Positive Falls, Chicken Pox and Cancer Social History SMOKING STATUS: Current every day smoker SUBSTANCE USE: does not use ALCOHOL: Never ED Exam Narrative Physical exam: Physical Exam: General: The vital signs were reviewed. The patient is non-toxic, in no apparent distress and appears healthy with a patent airway, no respiratory distress and has no apparent circulatory problems. Head & Scalp: Normocephalic, atraumatic. Face: Appears normal and is without lesions, deformity. Ears: Left external pinna appears normal. Right external pinna appears normal. Eyes: The sclera is anicteric. No obvious photophobia. The Left and Right Orbit/Lid/Conjunctiva appears normal without swelling, discoloration or injection. Nose: The nose is without deformity, discharge or tenderness; Throat: Appears normal. The mucous membranes are pink and moist without exudates, redness or mass seen. The tongue appears normal. Neck: The neck is supple and no apparent mass or adenopathy. Chest: The chest wall is normal in size and symmetry and has no chest wall tenderness or crepitus. The patient displays normal ventilator effort without retractions, accessory muscle use and has adequate air movement bilaterally with no wheezes and no rales. Cardiovascular: Regular rate and rhythm; No murmurs, rubs, or gallops; Gastrointestinal: The abdomen appears normal. No obvious hernias or mass. The abdomen is soft and benign, non-distended, with no pain, no guarding and no rebound tenderness. Bowel sounds are present and normal sounding. No CVA tenderness. Genitourinary: No breakdown of skin in the pelvic area. Back/Spine: Normal inspection Extremities/Musculoskeletal/lymphatic: The bilateral upper and lower extremities are warm. There is no evidence of arterial insufficiency. There is no evidence of venous insufficiency/edema. The patient spontaneously moves bilateral upper and lower extremities with no pain and no limitation of movement. There is no apparent, injury or trauma. Skin: The skin is warm, dry and intact. No rashes. No petechia. No purpura. No abnormal bruising. The color is appropriate with no cyanosis. Mental status/Psychiatric: Mental status is baseline and patient has general intolerance to having questions or being examined. Appropriate for age. The patient has no apparent delusions, visual hallucinations, no apparent audible hallucinations. The patient has no apparent suicidal thoughts/ideation and no apparent homicidal thoughts/ideation. Neurological: The patient is awake, alert, interactive, cordial, cooperative and is oriented to name and situation. The patient follows commands and answers historical question with no impairment. There is no visual disturbance apparent. The pupils are equal and reactive bilaterally with normal eye movements and no diplopia The bilateral upper and lower extremities have normal strength, normal range of motion and normal functioning. The gait, station and balance were not tested due to acuity she rolls over she complains of being cold Course Quality Measures none Orders Category Date Time Status Bedside Influenza A&B Antigen Test NOW Care 08/12/24 08:20 Completed EKG (ED ONLY) *Do not use* NOW Care 08/12/24 08:[address] head/brain wo con Stat Exams 08/12/24 08:19 Completed EKG (ED Only) Stat Exams 08/12/24 08:19 Draft B-Type Natriuretic Peptide Stat Lab 08/12/24 08:45 Completed CBC Stat Lab 08/12/24 08:45 Completed COVID-19 Antigen (In-House) Stat Lab 08/12/24 Ordered Comprehensive Metabolic Panel Stat Lab 08/12/24 08:45 Completed Drug Screen,Urine Stat Lab 08/12/24 09:27 Completed Free T4 (Free Thyroxine) Stat Lab 08/12/24 08:45 Completed Thyroid Stimulating Hormone Stat Lab 08/12/24 08:45 Completed Troponin I Stat Lab 08/12/24 08:45 Completed Urinalysis Stat Lab 08/12/24 09:27 Completed Vital Signs Vital signs: Vital Signs Temperature 97.4 F 08/12/24 08:09 Pulse Rate 76 08/12/24 08:09 Respiratory Rate 18 08/12/24 08:09 Blood Pressure 170/97 H 08/12/24 08:09 Pulse Oximetry (%) 95 08/12/24 08:09 Oxygen Delivery Method Room Air 08/12/24 08:09 Procedures -ED Smoking Cessation Time Spent Discussing Smoking Cessation w/Patient (min): 3 Patient Acknowledges Need for Cessation: Yes Additional Comments: The patient was counseled as to the multiple risks to their health from continued use of tobacco products. It was explained that continuing to smoke may lead to multiple short and assisted negative health consequences, including but not limited to mouth/esophageal/lung cancer, COPD, and heart disease. The patient states they understand these risks, and also understand the options and resources available to them to help them stop smoking. Nicotine replacement therapy, local hotlines, and local resources were discussed as viable options for helping them stop their tobacco use. The total time spent counseling the patient regarding tobacco cessation was 3 minutes. Discharge Plan Plan Patient Disposition: HOME (Self Care) Prescriptions/Referrals Prescriptions/Med Rec: No Action alendronate 70 mg Tablet 70 mg PO QWEEK oxcarbazepine 300 mg Tablet 300 mg PO BID lorazepam 0.5 mg Tablet 0.5 mg PO HS paroxetine HCl 20 mg Tablet 20 mg PO HS levetiracetam 750 mg Tablet 750 mg PO BID cholecalciferol (vitamin D3) [Vitamin D3] 50 mcg (2,000 unit) Capsule 50 mcg PO QDAY calcium carbonate 600 mg calcium (1,500 mg) Tablet 600 mg DAILY Referrals: Pavel Weeks MD [Primary Care Provider] - In 1 week Problem List Clinical Impression: Cold intolerance, Breakthrough seizure Impression comment: Multiple breakthrough seizures 3 to 5 days ago, cold intolerance etiology unknown no evidence of any illness clinically. Patient/Caregiver Discharge Instructions Additional Instructions: Dr. Wei when she had to call the office to make an appointment for this Saturday to further workup the breakthrough seizures The cause of the cold intolerance is unclear there is normal thyroid functions normal labs today. There is no evidence of acute infection. The urine is unremarkable. Monitor vital signs return if getting worse. Make sure there is no fans or silk screen layout drafter blowing on her as she may just be cold intolerant as her aging process or maybe there is some other process going on we have not determined yet. Reconnect with the facility doctor and update them on the results today. Print Language: Bhutanese Stand Alone Forms: Vilma Award Info., Patient Portal Info Letter MDM Narrative [facility] hospital course: I, Rosa Lawson am scribing for and in the presence of Dr. Rizo. Patient is a 58-year-old lives in a penitentiary who this past weekend but has had no seizures in the past 2 days. Caregiver present states she does take her medicines has not missed any doses. They went saw their doctor who referred them for further testing. But the reason the patient is here today as she is from the shelter and they noticed her to be shivering having cold sweats and constantly complaining of cold. This occurred at 5 AM so they brought her in for evaluation. White count is 3.2 hemoglobin is 14.9 platelet count 135,000 electrolytes are within normal limits BUN 14 creatinine 0.6 BUN/creatinine ratio is 23 total bilirubin and ALT were normal. TSH is 0.71 and free T4 is 0.9 nonclinic a specimen with 8 squames and 7 white cells and this is not consistent with a UTI it is not not on clean-catch specimen urine drug screen came back negative. CT of the head came back negative for any acute. Rectal temperature was done which was normal. In the day we have an episode of sweating feeling cold and the patient has a known seizure disorder. Patient does not appear to be acutely ill her vital signs are good O2 sat is more than adequate. nursing home was given advised to bring her back if she is getting worse monitor vital signs and consult their facility doctor or return as discussed Clinical Information Provided by patient other: caregiver from shelter Medical Records Reviewed [facility] Meds/Rx Considered, not Ordered None Labs/Rad/Tests considered, not Ordered None Chronic Illness/Social Conditions Add or document further as needed: PMHx: Epilepsy on 750 mg Keppra followed by Dr. Wei. 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 Still smokes cigarettes. EKG Interpretation EKG #1: Date/time of EK08/12/24 0822 hours EKG interpretation: sinus bradycardia, rate 58, no STEMI Lab Interpretation Labs: see narrative above Lab(s) interpretation(s): Flu and COVID test are both negative Imaging Radiology reports / interpretation(s): Procedure(s): CT head/brain wo con Accession Number(s): [id number] cc: Sunny Randle; Roverto Fish MD~ Examination: CT brain head without contrast. 2-D sagittal coronal reconstructions Date and time of exam:August 12, 2024 0831 hrs. Comparison 2024 Indication: Seizures today CTDI: vol (mGy):44.3 DLP: (mGycm):862 Technique: Multiple CT axial sections of the brain have been obtained, 5 mm slice thickness. Contrast has not been administered. 2-D sagittal, coronal reconstructions have been obtained Low dose protocols were performed. One or more of the following dose reduction techniques were used; automated exposure control, adjustment of the mA and/or KV according to patient size, use of iterative reconstruction technique. Findings: No significant ventricular enlargement. Right cerebral atrophy again noted Intra-axial or extra-axial hemorrhage density is not seen. No mass effect or midline shift Basal cisterns are not remarkable. Fourth ventricle is midline. Cranial vault intact. Impression: Negative for acute hemorrhage, mass effect or midline shift Dictated By: Roverto Fish MD Diagnosis Differential diagnosis: Dehydration, electrolyte imbalance, seizure
[2024-08-12 09:42] LABS: Bilirubin,Urine Negative (Negative); Blood,Urine Negative (Negative); Clarity,Urine Clear (Clear/Hazy); Color,Urine Yellow (Lt Yel-Yel); Glucose, Urine Negative (Negative); Hyaline Casts,Urine < 1 /hpf (0-1); Ketones,Urine Negative (Negative); Leukocyte Esterase,Urine Positive (Negative); Nitrite,Urine Negative (Negative); Protein,Urine Trace (Neg - Trace); RBC,Urine 1 /hpf (0-3); Specific Gravity,Urine 1.026 (1.001-1.035); Squamous Epithelial Cell,Urine 8 /hpf (0-5); Urobilinogen,Urine Negative mg/dL (0.0-1.0); WBC,Urine 7 /hpf (0-5)
[2024-08-12 10:16] VITALS: BP 164/81; PULSE 57; RESP 19; TEMP 36.7; O2SAT 95
[2024-08-12 10:20] LABS: Amphetamine/Methamp Scrn,U Negative (Negative); Barbiturate Screen,Urine Negative (Negative); Benzodiazepines Screen,Urine Negative (Negative); Benzoylecgonine Screen, Ur Negative (Negative); Fentanyl Screen,Urine Negative (Negative); Opiate Screen,Urine Negative (Negative); THC Screen,Urine Negative (Negative)
[2024-08-12 10:44] LABS: Thyroid Stimulating Hormone 0.71 uIU/mL (0.55-4.78)
[2024-08-12 12:07] VITALS: BP 159/77; PULSE 56; RESP 18; TEMP 36.8; O2SAT 97
[2024-08-12 13:01] VITALS: BP 146/95; PULSE 66; RESP 19; TEMP 36.7; O2SAT 95
== END 2024-08-12 13:02 | disposition home or self-care (01) ==
PROVIDERS: Nurse Practitioner Family; Emergency Provider Emergency Medicine; PCP Family Medicine
DX: G40.909 Epilepsy, unspecified, not intractable, without status epilepticus (principal); I44.0 Atrioventricular block, first degree
CPT/HCPCS: 36415; 70450; 80053; 80307; 81001; 83880; 84439; 84443; 84484; 85025; 87400; 87811; 93005; 99284

== ENCOUNTER → 2024-10-12 | Outpatient (CLI) | payer MEDICARE, MEDICAID, SELFPAY ==
[2024-10-12 16:28] LABS: Basophils # (Auto) 0.0 Thou/mm3 (0.0-0.2); Basophils % (Auto) 0 % (0-2.5); Eosinophils # (Auto) 0.0 Thou/mm3 (0.0-0.5); Eosinophils % (Auto) 0 % (0-10); Hematocrit 33.8 % (36.0-46.0); Hemoglobin 13.1 g/dL (12.0-16.0); Immature Granulocytes Auto 0.00 Thou/mm3 (0.00-0.00); Lymphocytes # (Auto) 1.4 Thou/mm3 (1.0-4.8); Lymphocytes % (Auto) 47 % (10-50); Mean Corpuscular HGB Conc 38.8 g/dl (31.0-37.0); Mean Corpuscular Hemoglobin 41.9 pg (25.0-35.0); Mean Corpuscular Volume 108 fL (80-100); Monocytes # (Auto) 0.4 Thou/mm3 (0.0-0.8); Monocytes % (Auto) 13 % (0-12); Neutrophils # (Auto) 1.2 Thou/mm3 (1.8-7.7); Neutrophils % (Auto) 40 % (37-80); Nucleated Red Blood Cell # 0.00 Thou/mm3 (0.00-0.00); Nucleated Red Blood Cell % 0 /100 WBC (0); Platelet Count 135 Thou/mm3 (140-440); RDW Standard Deviation 49.7 fL (36.4-46.3); Red Blood Count 3.13 Miln/mm3 (4.00-5.20); White Blood Count 3.1 Thou/mm3 (3.6-11.0)
[2024-10-12 16:55] LABS: Alanine Aminotransferase 8 U/L (10-49); Albumin, Serum 4.0 gm/dL (3.5-5.0); Albumin/Globulin Ratio 2.1 (1.2-2.2); Alkaline Phosphatase 54 U/L (46-116); Anion Gap 8 (7-16); Aspartate Amino Transferase 14 U/L (0-34); BUN/Creatinine Ratio 23 Ratio (12-20); Bilirubin,Total 0.3 mg/dL (0.3-1.2); Blood Urea Nitrogen 18 mg/dL (9-23); Calcium 9.8 mg/dL (8.3-10.6); Calcium (Corrected) 9.8 mg/dL (8.5-10.1); Carbon Dioxide 28.4 mMol/L (20.0-31.0); Chloride 110 mMol/L (98-107); Creatinine (Component) 0.8 mg/dL (0.6-1.3); Globulin 1.9 gm/dL (2.3-3.5); Glucose 101 mg/dL (74-106); Osmolality,Calculated 292 (275-295); Potassium 4.2 mMol/L (3.4-5.1); Sodium 146 mMol/L (136-145); Total Protein 5.9 gm/dL (5.7-8.2); eGFR > 60 See Note
== END | disposition home or self-care (01) ==
PROVIDERS: PCP Family Medicine; Referring Provider Internal Medicine Hematology & Oncology; Visit Provider Internal Medicine Hematology & Oncology
DX: D70.9 Neutropenia, unspecified (principal); D69.6 Thrombocytopenia, unspecified; M81.0 Age-related osteoporosis without current pathological fracture
CPT/HCPCS: 36415; 80053; 85025

== ENCOUNTER 2024-10-13 14:29 | Outpatient (RCR) | payer MEDICARE, MEDICAID, SELFPAY | END 2024-11-01 23:59 | disposition home or self-care (01) | LOC: SCTC 14:29 | PROVIDERS: PCP Family Medicine; Referring Provider Family Medicine; Visit Provider Internal Medicine Hematology & Oncology | DX: E53.8 Deficiency of other specified B group vitamins (principal); D70.9 Neutropenia, unspecified; M16.0 Bilateral primary osteoarthritis of hip | CPT/HCPCS: 73523; 96365; 96372; A4216; J3420; J3489; J7030 ==

== ENCOUNTER → 2024-10-13 | Outpatient (CLI) | payer MEDICARE, MEDICAID, SELFPAY ==
--- NOTE | 2024-10-13 16:26 | XR_ITS ---
Examination: Bilateral hips, AP pelvis, 5 views Technique: AP, lateral views both hips, AP pelvis, 5 views Exam date and time: October 13, 2024 1634 hours INDICATIONS: Bilateral hip pain beginning one month ago. FINDINGS: Bilateral mild hip osteoarthritis. Moderate osteopenia No right or left hip fracture or dislocation No avascular necrosis Bones of the pelvis intact. IMPRESSION: Mild bilateral hip osteoarthritis Suspicious for 7 mm 6 mm left renal calculi, recommend renal sonography follow-up
== END | disposition home or self-care (01) ==
PROVIDERS: PCP Family Medicine; Referring Provider Family Medicine; Visit Provider Family Medicine
DX: M16.0 Bilateral primary osteoarthritis of hip (principal); N28.89 Other specified disorders of kidney and ureter
CPT/HCPCS: 73523

== ENCOUNTER 2024-11-18 13:22 | Outpatient (RCR) | payer MEDICARE, MEDICAID, SELFPAY | END 2024-12-01 23:59 | disposition home or self-care (01) | LOC: SCTC 13:22 | PROVIDERS: PCP Family Medicine; Referring Provider Family Medicine; Visit Provider Nurse Practitioner Family | DX: E53.8 Deficiency of other specified B group vitamins (principal); D61.818 Other pancytopenia; M81.0 Age-related osteoporosis without current pathological fracture; G40.909 Epilepsy, unspecified, not intractable, without status epilepticus | CPT/HCPCS: 96372; 99212; J3420; G0463 ==

== ENCOUNTER 2024-12-08 14:24 | Outpatient (RCR) | payer MEDICARE, MEDICAID, SELFPAY | END 2025-01-01 23:59 | disposition home or self-care (01) | LOC: SCTC 14:24 | PROVIDERS: PCP Family Medicine; Referring Provider Family Medicine; Visit Provider Internal Medicine Hematology & Oncology | DX: E53.8 Deficiency of other specified B group vitamins (principal) | CPT/HCPCS: 96372; J3420 ==

== ENCOUNTER → 2024-12-29 | Outpatient (CLI) | payer MEDICARE, MEDICAID, SELFPAY ==
--- NOTE | 2024-12-29 12:00 | XR_ITS ---
Examination: MRI right hip without intravenous contrast. Date and time of exam: December 29, 2024, 1304 hours INDICATIONS: Right hip anterior groin pain beginning 4 months ago Technique: Multiple MRI images of the right hip have been obtained T1 weighted coronal sections, TR 500, TE 12 Proton density coronal fat saturated images, TR 3000, TE 71 T2-weighted coronal images, 5850, TE 104 T1-weighted axial images, TR 521, TE 12 T2-weighted axial fat suppressed images, TR 5730, TE 103. Findings: Adequate marrow signal right hip, no bone contusion marrow edema or occult fracture or avascular necrosis Small right hip effusion Left hip intact Mild bilateral hip osteoarthritis Small [id number] images do demonstrate small superior right hip labral tears IMPRESSION: No occult hip fracture bone marrow contusion or avascular necrosis Mild bilateral hip osteoarthritis Small superior right hip labral tears
== END | disposition home or self-care (01) ==
PROVIDERS: PCP Family Medicine; Referring Provider Family Medicine; Visit Provider Family Medicine
DX: M16.0 Bilateral primary osteoarthritis of hip (principal); S73.101A Unspecified sprain of right hip, initial encounter; X58.XXXA Exposure to other specified factors, initial encounter
CPT/HCPCS: 73721

== ENCOUNTER → 2025-01-08 | Outpatient (CLI) | payer MEDICARE, MEDICAID, SELFPAY ==
[2025-01-08 16:30] LABS: Basophils # (Auto) 0.0 Thou/mm3 (0.0-0.2); Basophils % (Auto) 0 % (0-2.5); Eosinophils # (Auto) 0.0 Thou/mm3 (0.0-0.5); Eosinophils % (Auto) 0 % (0-10); Hematocrit 35.2 % (36.0-46.0); Hemoglobin 13.2 g/dL (12.0-16.0); Immature Granulocytes Auto 0.00 Thou/mm3 (0.00-0.00); Lymphocytes # (Auto) 1.3 Thou/mm3 (1.0-4.8); Lymphocytes % (Auto) 44 % (10-50); Mean Corpuscular HGB Conc 37.5 g/dl (31.0-37.0); Mean Corpuscular Hemoglobin 39.3 pg (25.0-35.0); Mean Corpuscular Volume 105 fL (80-100); Monocytes # (Auto) 0.5 Thou/mm3 (0.0-0.8); Monocytes % (Auto) 16 % (0-12); Neutrophils # (Auto) 1.2 Thou/mm3 (1.8-7.7); Neutrophils % (Auto) 39 % (37-80); Nucleated Red Blood Cell # 0.00 Thou/mm3 (0.00-0.00); Nucleated Red Blood Cell % 0 /100 WBC (0); Platelet Count 134 Thou/mm3 (140-440); RDW Standard Deviation 46.5 fL (36.4-46.3); Red Blood Count 3.36 Miln/mm3 (4.00-5.20); White Blood Count 2.9 Thou/mm3 (3.6-11.0)
[2025-01-08 16:51] LABS: Vitamin B12 251 pg/mL (211-911)
[2025-01-08 16:53] LABS: Alanine Aminotransferase 10 U/L (10-49); Albumin, Serum 4.4 gm/dL (3.5-5.0); Albumin/Globulin Ratio 2.8 (1.2-2.2); Alkaline Phosphatase 49 U/L (46-116); Anion Gap 8 (7-16); Aspartate Amino Transferase 16 U/L (0-34); BUN/Creatinine Ratio 27 Ratio (12-20); Bilirubin,Total 0.3 mg/dL (0.3-1.2); Blood Urea Nitrogen 19 mg/dL (9-23); Calcium 10.1 mg/dL (8.3-10.6); Calcium (Corrected) 10.1 mg/dL (8.5-10.1); Carbon Dioxide 28.8 mMol/L (20.0-31.0); Chloride 106 mMol/L (98-107); Creatinine (Component) 0.7 mg/dL (0.6-1.3); Globulin 1.6 gm/dL (2.3-3.5); Glucose 100 mg/dL (74-106); Osmolality,Calculated 287 (275-295); Potassium 4.1 mMol/L (3.4-5.1); Sodium 143 mMol/L (136-145); Total Protein 6.0 gm/dL (5.7-8.2); eGFR > 60 See Note
== END | disposition home or self-care (01) ==
LOC: SCTO 15:28
PROVIDERS: PCP Family Medicine; Referring Provider Internal Medicine Hematology & Oncology; Visit Provider Internal Medicine Hematology & Oncology
DX: D70.9 Neutropenia, unspecified (principal); D69.6 Thrombocytopenia, unspecified; M81.0 Age-related osteoporosis without current pathological fracture
CPT/HCPCS: 36415; 80053; 82607; 85025

== ENCOUNTER 2025-01-11 13:24 | Outpatient (RCR) | payer MEDICARE, MEDICAID, SELFPAY | END 2025-01-31 23:59 | disposition home or self-care (01) | LOC: SCTC 13:24 | PROVIDERS: PCP Family Medicine; Referring Provider Family Medicine; Visit Provider Nurse Practitioner Family | DX: E53.8 Deficiency of other specified B group vitamins (principal); M81.0 Age-related osteoporosis without current pathological fracture; D61.818 Other pancytopenia | CPT/HCPCS: 96372; J3420; J3489 ==

== ENCOUNTER → 2025-01-13 | Outpatient (CLI) | payer MEDICARE, MEDICAID, SELFPAY ==
--- NOTE | 2025-01-13 16:08 | XR_ITS ---
Examination: CT brain head without contrast. 2-D sagittal coronal reconstructions Date and time of exam: January 13, 2025, 1624 hours, comparison August 12, 2024 INDICATIONS: Onset slurred speech today CTDI: vol (mGy): 42.8 DLP: (mGycm): 919 Technique: Multiple CT axial sections of the brain have been obtained, 5 mm slice thickness. Contrast has not been administered. 2-D sagittal, coronal reconstructions have been obtained Low dose protocols were performed. One or more of the following dose reduction techniques were used; automated exposure control, adjustment of the mA and/or KV according to patient size, use of iterative reconstruction technique. Findings: No significant ventricular enlargement. Mild right cerebral atrophy Intra-axial or extra-axial hemorrhage density is not seen. No mass effect or midline shift Basal cisterns are not remarkable. Fourth ventricle is midline. Cranial vault intact. Impression: Negative for acute hemorrhage, mass effect or midline shift As clinically warranted, brain MRI follow-up would best assess for acute ischemic change
[2025-01-13 16:42] LABS: Misc Send Out* See Sep Rpt
[2025-01-13 17:33] LABS: Calcium 9.8 mg/dL (8.3-10.6)
[2025-01-18 07:10] LABS: Levetiracetam (Keppra)* 21.3 mcg/mL (6.0-46.0)
== END | disposition home or self-care (01) ==
LOC: CDIM 16:02 → CCTX 16:03 → COPL 16:34
PROVIDERS: PCP Family Medicine; Referring Provider Family Medicine; Visit Provider Radiology Diagnostic Radiology
DX: R47.81 Slurred speech (principal); G40.909 Epilepsy, unspecified, not intractable, without status epilepticus; E83.52 Hypercalcemia
CPT/HCPCS: 36415; 70450; 80156; 80177; 82310

== ENCOUNTER → 2025-02-05 | Outpatient (CLI) | payer MEDICARE, MEDICAID, SELFPAY ==
[2025-02-05 16:46] LABS: Alanine Aminotransferase 10 U/L (10-49); Albumin, Serum 4.4 gm/dL (3.5-5.0); Albumin/Globulin Ratio 2.3 (1.2-2.2); Alkaline Phosphatase 52 U/L (46-116); Anion Gap 8 (7-16); Aspartate Amino Transferase 16 U/L (0-34); BUN/Creatinine Ratio 29 Ratio (12-20); Bilirubin,Total 0.3 mg/dL (0.3-1.2); Blood Urea Nitrogen 23 mg/dL (9-23); Calcium 9.6 mg/dL (8.3-10.6); Calcium (Corrected) 9.6 mg/dL (8.5-10.1); Carbon Dioxide 29.4 mMol/L (20.0-31.0); Chloride 109 mMol/L (98-107); Creatinine (Component) 0.8 mg/dL (0.6-1.3); Globulin 1.9 gm/dL (2.3-3.5); Glucose 95 mg/dL (74-106); Osmolality,Calculated 294 (275-295); Potassium 4.2 mMol/L (3.4-5.1); Sodium 146 mMol/L (136-145); Total Protein 6.3 gm/dL (5.7-8.2); eGFR > 60 See Note
[2025-02-05 16:51] LABS: Basophils # (Auto) 0.0 Thou/mm3 (0.0-0.2); Basophils % (Auto) 0 % (0-2.5); Eosinophils # (Auto) 0.0 Thou/mm3 (0.0-0.5); Eosinophils % (Auto) 0 % (0-10); Hematocrit 32.6 % (36.0-46.0); Hemoglobin 12.8 g/dL (12.0-16.0); Immature Granulocytes Auto 0.00 Thou/mm3 (0.00-0.00); Lymphocytes # (Auto) 1.4 Thou/mm3 (1.0-4.8); Lymphocytes % (Auto) 41 % (10-50); Mean Corpuscular HGB Conc 39.3 g/dl (31.0-37.0); Mean Corpuscular Hemoglobin 42.1 pg (25.0-35.0); Mean Corpuscular Volume 107 fL (80-100); Monocytes # (Auto) 0.5 Thou/mm3 (0.0-0.8); Monocytes % (Auto) 14 % (0-12); Neutrophils # (Auto) 1.5 Thou/mm3 (1.8-7.7); Neutrophils % (Auto) 44 % (37-80); Nucleated Red Blood Cell # 0.00 Thou/mm3 (0.00-0.00); Nucleated Red Blood Cell % 0 /100 WBC (0); Platelet Count 134 Thou/mm3 (140-440); RDW Standard Deviation 48.6 fL (36.4-46.3); Red Blood Count 3.04 Miln/mm3 (4.00-5.20); White Blood Count 3.3 Thou/mm3 (3.6-11.0)
== END | disposition home or self-care (01) ==
LOC: SCTO 15:32
PROVIDERS: PCP Family Medicine; Referring Provider Nurse Practitioner Family; Visit Provider Nurse Practitioner Family
DX: M81.0 Age-related osteoporosis without current pathological fracture (principal)
CPT/HCPCS: 36415; 80053; 85025

== ENCOUNTER 2025-02-16 14:31 | Outpatient (AMB) | payer MEDICARE, MEDICAID, SELFPAY ==
[2025-02-16 14:59] VITALS: BP 162/83; PULSE 68; RESP 19; TEMP 36.4; O2SAT 95; BMI 24.6
--- NOTE | 2025-02-16 14:59 | PD.ORTHCLVIS ---
Vital signs 02/16/25 14:59 Height 1.55 m Height Method Measured Weight 59.165 kg Weight Measurement Method Standing Scale BMI 24.6 BP 162/83 H Blood Pressure Source Automatic Cuff Blood Pressure Location Left Upper Arm Position Sitting Respiration 19 Pulse 68 Pulse Source Monitor Temp 97.6 F Temp Source Temporal Artery Scan Pulse Oximetry (%) 95 Oxygen Delivery Method Room Air Med/Allergies Allergies & Medications Allergies aspirin Allergy (Severe, Verified 02/16/25 15:01) HIVES carbamazepine (From Tegretol) Allergy (Severe, Verified 02/16/25 15:01) Rash codeine Allergy (Severe, Verified 02/16/25 15:01) Rash divalproex sodium Allergy (Severe, Verified 02/16/25 15:01) COMA Penicillins Allergy (Severe, Verified 02/16/25 15:01) RASH phenobarbital Allergy (Severe, Verified 02/16/25 15:01) RASH Medication Reconciliation alendronate 70 mg tablet 70 mg PO QWEEK 01/14/24 [History Confirmed 02/16/25] cholecalciferol (vitamin D3) 50 mcg (2,000 unit) capsule (Vitamin D3) 50 mcg PO QDAY 01/14/24 [History Confirmed 02/16/25] levetiracetam 750 mg tablet 750 mg PO BID 01/14/24 [History Confirmed 02/16/25] lorazepam 0.5 mg tablet 0.5 mg PO HS 01/14/24 [History Confirmed 02/16/25] oxcarbazepine 300 mg tablet 300 mg PO BID 01/14/24 [History Confirmed 02/16/25] paroxetine HCl 20 mg tablet 20 mg PO HS 01/14/24 [History Confirmed 02/16/25] calcium carbonate 600 mg DAILY 03/26/24 [History Confirmed 02/16/25] meloxicam 7.5 mg tablet 7.5 mg PO QDAY #45 tabs 02/16/25 [Rx] Exam Exam Patient is in no acute distress and is cooperative with the examination today. Breathing is nonlabored. In no respiratory distress. Patient has no paraspinal tenderness. Spinal deformity cannot be appreciated. The gait of the patient is nonantalgic Bilateral extremities were evaluated and demonstrates sensation intact to light touch. Palpable pedal pulses are present. No significant edema is present. Bilateral knees were examined and the patient has full strength and range of motion.. The left hip was examined. Patient was able to flex to 90 degrees, adduct to 30 degrees, abduct to 40 degrees, internally rotate to 20 degrees, and externally rotate to 20 degrees. Patient has a negative logroll. Stinchfield is negative. The patient is nontender diffusely to touch. The right hip was examined. Patient was able to flex to 90 degrees, adduct to 30 degrees, abduct to 40 degrees, internally rotate to 20 degrees, and externally rotate to 20 degrees. Patient has a negative logroll. The stinchfield is negative. X-rays demonstrate minimal arthritis. She has an outside MRI which demonstrates a labral tear Assessment and Plan Problem List (1) Labral tear of right hip joint: Status: Acute Plan: Patient is a 59-year-old female with a right hip labral tear and mild osteoarthritis. We discussed different treatment options. We discussed cortisone injections and nonoperative treatment as well as meloxicam. She would like to start with his meloxicam today. We can see her in 3 months to make sure she is improving Office Procedures GNS Level of Care Nursing/Assessment Patient Status: Initial/New Patient Nursing Assessment/Reassesment: Medication Reconciliation, Update PMH in EMR and Vital Signs Coordination of Care: Complex Care and Chronic Disease 1-5, Education Complex Pt/Fam, Consent,records obtained, informed consent, 1 Ins Authorization, Lab and Imaging orders, Results/Orders obtained and Staff clarify orders New Patient Charge New Patient Point Assignment: 1124 New Patient Point Charge: SOCIAL MEDIA EDITOR Level 4 ([id number]) MA Intake Visit Data Collection New Patient or Established: New Patient (never been to [facility]) Reason for Visit:: RIGHT HIP LABRAL TEAR Seen by Clinical Staff ONLY (RN/MA): No PCP or OBGYN visit in last 3 months: Yes Hx Now: No Do You Feel Safe at Home: Yes Authorities Contacted: N/A Questionairres Past Medical History Past Medical History Have you ever been diagnosed with any of the following: Neurological Problems Seizures: Yes Epilepsy: Yes Cardiology Problems Congestive Heart Failure: No Respiratory Problems Chronic Obstructive Pulmonary Disease (COPD): No Tuberculosis: No Sleep Apnea: No Genital/Urinary Problems Renal Disease: No Reproductive Problems Pelvic Inflammatory Disease: No Previous Pregnancies: No Musculoskeletal Problems Arthritis: No Endocrine Problems Diabetes Mellitus Type 1: No Diabetes Mellitus Type 2: No Blood Problems Anemia: No Clotting Problems: No Psychologic Problems Depression: No Anxiety: No Other Problems Hospitalization: No Shingles: No Falls: Yes Blood Transfusions: No Blood Transfusion Reaction: No Anesthesia Reactions: No Chemotherapy: No Radiation Therapy: No Chicken Pox: Yes Cancer: Yes Subjective Visit Visit for: new patient and hip (RIGHT) Immunization / Flu Flu Vaccine in the Last 12 Months: No Flu Vaccine Exclusion Criteria: Refused by Patient History of Present Illness Chief complaint: RIGHT HIP LABRAL TEAR Date of injury / onset of symptoms: NOV 2024 Personal History Occupation: DISABLED BMI Counceling provided: Yes Pain Pain level (0-10): 2 Pain duration: ON AND OFF Pain location: groin Pain quality: dull Pain timing: increases with activity Associated signs & symptoms: stiffness Ambulatory data Ambulatory device: none Treatments Number of previous injections: 0 Improvement with previous injections: No Number of Physical Therapy sessions: 0 Improvement with PT: No Improvement with NSAIDS: no Review of Systems Review of Systems: All systems negative unless otherwise noted in HPI.
== END 2025-02-16 15:26 | disposition home or self-care (01) ==
LOC: HODSRG 14:31
PROVIDERS: PCP Family Medicine; Referring Provider Family Medicine; Supervising Provider Orthopaedic Surgery Adult Reconstructive Orthopaedic Surgery; Visit Provider Orthopaedic Surgery Adult Reconstructive Orthopaedic Surgery
DX: S73.191A Other sprain of right hip, initial encounter (principal); X58.XXXA Exposure to other specified factors, initial encounter; M16.11 Unilateral primary osteoarthritis, right hip
CPT/HCPCS: 99204; G0463

== ENCOUNTER → 2025-02-24 | Outpatient (CLI) | payer MEDICARE, MEDICAID, SELFPAY ==
[2025-02-24 14:42] LABS: Basophils # (Auto) 0.0 Thou/mm3 (0.0-0.2); Basophils % (Auto) 0 % (0-2.5); Eosinophils # (Auto) 0.0 Thou/mm3 (0.0-0.5); Eosinophils % (Auto) 0 % (0-10); Hematocrit 34.2 % (36.0-46.0); Hemoglobin 12.4 g/dL (12.0-16.0); Immature Granulocytes Auto 0.00 Thou/mm3 (0.00-0.00); Lymphocytes # (Auto) 1.3 Thou/mm3 (1.0-4.8); Lymphocytes % (Auto) 42 % (10-50); Mean Corpuscular HGB Conc 36.3 g/dl (31.0-37.0); Mean Corpuscular Hemoglobin 37.9 pg (25.0-35.0); Mean Corpuscular Volume 105 fL (80-100); Monocytes # (Auto) 0.4 Thou/mm3 (0.0-0.8); Monocytes % (Auto) 13 % (0-12); Neutrophils # (Auto) 1.5 Thou/mm3 (1.8-7.7); Neutrophils % (Auto) 46 % (37-80); Nucleated Red Blood Cell # 0.00 Thou/mm3 (0.00-0.00); Nucleated Red Blood Cell % 0 /100 WBC (0); Platelet Count 142 Thou/mm3 (140-440); RDW Standard Deviation 47.0 fL (36.4-46.3); Red Blood Count 3.27 Miln/mm3 (4.00-5.20); White Blood Count 3.2 Thou/mm3 (3.6-11.0)
[2025-02-24 14:52] LABS: Alanine Aminotransferase 11 U/L (10-49); Albumin, Serum 4.0 gm/dL (3.5-5.0); Albumin/Globulin Ratio 1.9 (1.2-2.2); Alkaline Phosphatase 50 U/L (46-116); Anion Gap 7 (7-16); Aspartate Amino Transferase 17 U/L (0-34); BUN/Creatinine Ratio 33 Ratio (12-20); Bilirubin,Total 0.3 mg/dL (0.3-1.2); Blood Urea Nitrogen 20 mg/dL (9-23); Calcium 9.9 mg/dL (8.3-10.6); Calcium (Corrected) 9.9 mg/dL (8.5-10.1); Carbon Dioxide 29.6 mMol/L (20.0-31.0); Chloride 105 mMol/L (98-107); Creatinine (Component) 0.6 mg/dL (0.6-1.3); Globulin 2.1 gm/dL (2.3-3.5); Glucose 100 mg/dL (74-106); Osmolality,Calculated 285 (275-295); Potassium 4.0 mMol/L (3.4-5.1); Sodium 142 mMol/L (136-145); Total Protein 6.1 gm/dL (5.7-8.2); eGFR > 60 See Note
== END | disposition home or self-care (01) ==
LOC: SCTO 13:52
PROVIDERS: PCP Family Medicine; Referring Provider Nurse Practitioner Family; Visit Provider Nurse Practitioner Family
DX: D70.9 Neutropenia, unspecified (principal); D69.6 Thrombocytopenia, unspecified; M81.0 Age-related osteoporosis without current pathological fracture
CPT/HCPCS: 36415; 80053; 85025

== ENCOUNTER 2025-03-01 14:28 | Outpatient (RCR) | payer MEDICARE, MEDICAID, SELFPAY | END 2025-03-03 23:59 | disposition home or self-care (01) | LOC: SCTC 14:28 | PROVIDERS: PCP Family Medicine; Referring Provider Family Medicine; Visit Provider Nurse Practitioner Family | DX: E53.8 Deficiency of other specified B group vitamins (principal); D61.818 Other pancytopenia; M81.0 Age-related osteoporosis without current pathological fracture; G40.909 Epilepsy, unspecified, not intractable, without status epilepticus | CPT/HCPCS: 96365; 96372; J3420; J3489; J7030 ==